=== PATIENT | female | born 1940 | race Caucasian/White ===

== ENCOUNTER 2018-07-06 14:59 | Emergency (ER) | payer OTHER ==
[~2018-07-06] VITALS: Ht 154.9 cm; Wt 63.5 kg
[~2018-07-06 14:59] MED LIST: CATAPRES0.3 M1; COZAAR50 MG; FOLIC ACID1 MG; PROTONIX20 MG; TRANDOLAPRIL4 MG; VERAPAMIL HCL240 M1; [UNRECOGNIZED DRUG - OTHER]
== END 2018-07-06 21:08 | disposition home or self-care (01) ==
LOC: ER 14:59
DX: G51.0 Bell's palsy (principal); R53.1 Weakness

== ENCOUNTER 2020-04-18 22:04 | Emergency (ER) | payer OTHER ==
[~2020-04-18] VITALS: Ht 162.6 cm; Wt 77.1 kg
[2020-04-18] MEDS ORDERED: HYDROCHLOROTHIA25 MG (22:10)
[2020-04-18] MEDS ORDERED: GLIPIZIDE XL10 MG (22:10)
[2020-04-18] MEDS ORDERED: ISORDIL10 MG (22:10)
== END 2020-04-19 05:58 | disposition home or self-care (01) ==
LOC: ER 22:04 → CPU-OBS 22:28 → ER 04-19 05:58
DX: I16.0 Hypertensive urgency (principal); I10 Essential (primary) hypertension; R07.89 Other chest pain; R09.02 Hypoxemia; Z03.818 Encounter for observation for suspected exposure to other biological agents ruled out

== ENCOUNTER 2020-06-10 10:33 | Emergency (ER) | payer OTHER ==
[~2020-06-10] VITALS: Ht 157.5 cm; Wt 73.5 kg
[~2020-06-10 10:33] MED LIST changes: +GLIPIZIDE XL10 MG; +HYDROCHLOROTHIA25 MG; +ISORDIL10 MG
== END 2020-06-10 19:46 | disposition home or self-care (01) ==
LOC: ER 10:33
DX: R53.81 Other malaise (principal); K62.5 Hemorrhage of anus and rectum

== ENCOUNTER 2020-06-16 11:25 | Emergency (ER) | payer OTHER ==
[~2020-06-16] VITALS: Ht 157.5 cm; Wt 73.5 kg
== END 2020-06-16 17:09 | disposition home or self-care (01) ==
LOC: ER 11:25
DX: N20.0 Calculus of kidney (principal); M54.5 Low back pain

== ENCOUNTER 2020-08-29 15:16 | Emergency (ER) | payer OTHER ==
[~2020-08-29] VITALS: Ht 157.5 cm; Wt 97.5 kg
[2020-08-29] MEDS ORDERED: MEDROLPACK PO (22:12)
== END 2020-08-29 22:36 | disposition home or self-care (01) ==
LOC: ER 15:16
DX: G51.0 Bell's palsy (principal); R42 Dizziness and giddiness
CPT/HCPCS: 70551

== ENCOUNTER 2020-11-24 10:10 | Outpatient (CLI) | payer OTHER ==
[~2020-11-24 10:10] MED LIST changes: +MEDROLPACK PO
== END 2020-11-24 10:12 | disposition home or self-care (01) ==
LOC: RX STUDY 10:10
PROVIDERS: ATTEND Internal Medicine Gastroenterology
DX: K21.9 Gastro-esophageal reflux disease without esophagitis (principal); R10.13 Epigastric pain

== ENCOUNTER 2020-11-26 08:00 | Outpatient (CLI) | payer OTHER | END 2020-11-26 08:30 | disposition home or self-care (01) | LOC: PPH VACUNA 08:00 | PROVIDERS: ATTEND Emergency Medicine Pediatric Emergency Medicine | DX: Z23 Encounter for immunization (principal) ==

== ENCOUNTER 2021-04-17 12:16 | Outpatient (CLI) | payer OTHER | END 2021-04-17 12:17 | disposition home or self-care (01) | LOC: RAD 12:16 | DX: S90.32XA Contusion of left foot, initial encounter (principal) ==

== ENCOUNTER 2022-06-28 16:46 | Emergency (ER) | payer OTHER ==
[~2022-06-28] VITALS: Ht 157.5 cm; Wt 64.4 kg
[2022-06-28] MEDS ORDERED: NAMENDA5 MG PO (17:21)
[2022-06-28] MEDS ORDERED: LEXAPRO5 MG PO (17:22)
== END 2022-06-28 22:52 | disposition home or self-care (01) ==
LOC: ER 16:46
DX: S09.8XXA Other specified injuries of head, initial encounter (principal); W06.XXXA Fall from bed, initial encounter; Y93.89 Activity, other specified; Y92.013 Bedroom of single-family (private) house as the place of occurrence of the external cause; S79.811A Other specified injuries of right hip, initial encounter; S39.83XA Other specified injuries of pelvis, initial encounter; S49.81XA Other specified injuries of right shoulder and upper arm, initial encounter; S19.89XA Other specified injuries of other specified part of neck, initial encounter; F03.90 Unspecified dementia, unspecified severity, without behavioral disturbance, psychotic disturbance, mood disturbance, and anxiety; Z88.0 Allergy status to penicillin; Z88.2 Allergy status to sulfonamides; I10 Essential (primary) hypertension